=== PATIENT | female | born 1975 | race Asian ===

== ENCOUNTER → 2016-10-12 15:53 | Outpatient (CLI) | payer OTHER | END | disposition home or self-care (01) | LOC: AMB 15:53 | DX: Z04.8 Encounter for examination and observation for other specified reasons (principal) ==

== ENCOUNTER 2020-11-10 14:37 | Outpatient (CLI) | payer OTHER | END 2020-11-10 22:51 | disposition home or self-care (01) | LOC: RAD 14:37 | PROVIDERS: ATTEND Family Medicine | DX: M25.572 Pain in left ankle and joints of left foot (principal); M79.672 Pain in left foot ==

== ENCOUNTER 2021-03-01 06:21 | Outpatient (CLI) | payer OTHER ==
[2021-03-01 07:52] LABS: POTASSIUM 3.6 mmol/L (3.6-5.2)
[2021-03-01 07:56] LABS: PLATELET COUNT 159 K/uL (152-353)
== END 2021-03-01 18:59 | disposition home or self-care (01) ==
LOC: LABW 06:21
PROVIDERS: ATTEND Family Medicine
DX: D50.9 Iron deficiency anemia, unspecified (principal); F41.9 Anxiety disorder, unspecified; F99 Mental disorder, not otherwise specified; M54.9 Dorsalgia, unspecified; G89.4 Chronic pain syndrome; F45.42 Pain disorder with related psychological factors
CPT/HCPCS: 36415; 80053; 80061; 84439; 84443; 85027

== ENCOUNTER 2021-08-21 12:59 | Emergency (ER) | payer OTHER ==
[~2021-08-21] VITALS: Ht 175.3 cm; Wt 72.6 kg
[2021-08-21 13:08] VITALS: BP 140/87; TEMP 99.7
[2021-08-21 14:13] LABS: PLATELET COUNT 140 K/uL (152-353); POTASSIUM 3.6 mmol/L (3.6-5.2)
== END 2021-08-21 15:29 | disposition home or self-care (01) ==
LOC: ED 12:59
PROVIDERS: Emergency Medicine
DX: D50.8 Other iron deficiency anemias (principal); M25.511 Pain in right shoulder
CPT/HCPCS: 80053; 81000; 81025; 82607; 82728; 82747; 83540; 83550; 84443; 84466; 85007; 85027; 96372; 99283; J1885